=== PATIENT | male | born 1965 | race Caucasian/White ===

== ENCOUNTER 2019-02-24 00:19 | Day surgery (SDC) | payer BC ==
[~2019-02-24] VITALS: Ht 177.8 cm; Wt 94.8 kg
[~2019-02-24 00:19] MED LIST: ALLO100T70 PO; AMO500 PO; ATOR20TA65 PO; KET10 PO; PRE20 PO
[2019-02-24 07:09] VITALS: BP 136/98
[2019-02-24] MEDS ORDERED: LIDOCAINE/SOD BICARB 8.4% SYR ID ONE (07:20)
[2019-02-24] MEDS ORDERED: NORMOSOL R SOLN(*) 1000 ML BAG 1,000 ML IV PRN (07:20)
[2019-02-24] MEDS ORDERED: LIDOCAINE MPF 1% 5 ML VIAL ONE ×2 (07:44→07:47)
[2019-02-24] MEDS ORDERED: PROPOFOL EMUL(*) 10MG/ML 20 ML 40 ML ONE ×2 (07:44→07:47)
[2019-02-24 08:38] VITALS: BP 101/81
[2019-02-24 08:55] VITALS: BP 114/82
[2019-02-24 09:17] VITALS: BP 119/83
[2019-02-24 09:18] VITALS: BP 107/80
== END 2019-02-24 09:48 | disposition home or self-care (01) ==
LOC: OR 00:19
PROVIDERS: ATTEND Family Medicine
DX: Z12.11 Encounter for screening for malignant neoplasm of colon (principal); K63.5 Polyp of colon; K57.30 Diverticulosis of large intestine without perforation or abscess without bleeding
CPT/HCPCS: 00812; 45385; 88305; J2001; J2704